=== PATIENT | female | born 1985 | race Caucasian/White ===

== ENCOUNTER 2018-07-30 22:53 | Emergency (ER) | payer OTHER ==
[~2018-07-30] VITALS: Ht 152.4 cm; Wt 56.9 kg
[~2018-07-30 22:53] MED LIST: MOT600 PO; ZOF4 PO
[2018-07-31 03:35] VITALS: BP 107/52
== END 2018-07-31 03:35 | disposition home or self-care (01) ==
LOC: ED 22:53
DX: L02.212 Cutaneous abscess of back [any part, except buttock and flank] (principal)
CPT/HCPCS: J1885; J2001

== ENCOUNTER 2018-08-02 20:41 | Emergency (ER) | payer OTHER ==
[~2018-08-02] VITALS: Ht 152.4 cm; Wt 55.8 kg
[2018-08-02 20:53] VITALS: Ht 152.4 cm; Wt 55.8 kg
[2018-08-02 21:29] VITALS: BP 116/69
== END 2018-08-02 21:29 | disposition home or self-care (01) ==
LOC: ED 20:41
DX: Z48.01 Encounter for change or removal of surgical wound dressing (principal); R11.0 Nausea; R42 Dizziness and giddiness; F17.210 Nicotine dependence, cigarettes, uncomplicated
CPT/HCPCS: 99406

== ENCOUNTER 2018-12-15 14:46 | Emergency (ER) | payer OTHER ==
[~2018-12-15] VITALS: Ht 152.4 cm; Wt 55.3 kg
[2018-12-15 14:48] VITALS: Ht 152.4 cm; Wt 55.3 kg
[2018-12-15 17:14] VITALS: BP 118/92
== END 2018-12-15 17:14 | disposition home or self-care (01) ==
LOC: ED 14:46
DX: L72.3 Sebaceous cyst (principal); F17.210 Nicotine dependence, cigarettes, uncomplicated; R50.9 Fever, unspecified; Z98.51 Tubal ligation status; Z98.890 Other specified postprocedural states; Z85.41 Personal history of malignant neoplasm of cervix uteri
CPT/HCPCS: 99406; J2001

== ENCOUNTER 2019-02-03 22:23 | Emergency (ER) | payer OTHER ==
[~2019-02-03] VITALS: Ht 152.4 cm; Wt 56.7 kg
[2019-02-03 22:55] VITALS: Ht 152.4 cm; Wt 56.7 kg
[2019-02-04 00:17] VITALS: BP 98/67
== END 2019-02-04 00:17 | disposition home or self-care (01) ==
LOC: ED 22:23
DX: S86.912A Strain of unspecified muscle(s) and tendon(s) at lower leg level, left leg, initial encounter (principal); Z98.51 Tubal ligation status; Z98.890 Other specified postprocedural states; Z85.41 Personal history of malignant neoplasm of cervix uteri; X50.1XXA Overexertion from prolonged static or awkward postures, initial encounter; Y93.K1 Activity, walking an animal; Y92.89 Other specified places as the place of occurrence of the external cause; Y99.8 Other external cause status
CPT/HCPCS: J1885

== ENCOUNTER 2019-08-19 12:36 | Emergency (ER) | payer OTHER ==
[~2019-08-19] VITALS: Ht 152.4 cm; Wt 55.3 kg
[2019-08-19 13:00] VITALS: BP 131/67; Ht 152.4 cm; Wt 55.3 kg
== END 2019-08-19 14:21 | disposition home or self-care (01) ==
LOC: ED 12:36
DX: J11.1 Influenza due to unidentified influenza virus with other respiratory manifestations (principal); Z98.51 Tubal ligation status; Z85.41 Personal history of malignant neoplasm of cervix uteri; Z98.890 Other specified postprocedural states
CPT/HCPCS: J1100

== ENCOUNTER 2020-05-04 07:12 | Emergency (ER) | payer OTHER ==
[~2020-05-04] VITALS: Ht 152.4 cm; Wt 53.1 kg
[2020-05-04 07:34] VITALS: Ht 152.4 cm; Wt 53.1 kg
[2020-05-04 08:36] VITALS: BP 114/78
[2020-05-04 08:43] LABS: BASOPHIL % 0.8 % (0-2); PLATELET COUNT 246 x10^3mcL (130-400); RED CELL DISTRIBUTION WIDTH 13.7 % (11.5-14.5)
[2020-05-04 08:49] LABS: FREE T4 1.09 ng/dL (0.76-1.46); FREE THYROXINE INDEX 2.8 ug/dL (1.4-4.5); T4(THYROXINE) 7.6 ug/dL (4.7-13.3)
[2020-05-04 08:57] LABS: CARBON DIOXIDE 24.6 mmol/L (21-32); CHLORIDE SERUM 105 mmol/L (98-107); CREATININE SERUM 0.9 mg/dL (0.6-1.0); GFR1 > 60 mL/min; GLUCOSE SERUM 92 mg/dL (74-106); POTASSIUM SERUM 3.7 mmol/L (3.5-5.1); SODIUM SERUM 139 mmol/L (136-145)
[2020-05-04 09:01] LABS: ALKALINE PHOSPHATASE 56 U/L (46-116); ALT/SGPT 20 U/L (14-59); AST/SGOT 12 U/L (15-37); BILIRUBIN TOTAL 1.11 mg/dL (0.20-1.00); TOTAL PROTEIN, SERUM 7.1 g/dL (6.4-8.2)
[2020-05-04 09:33] LABS: T3 TOTAL 1.17 ng/mL
== END 2020-05-04 09:48 | disposition home or self-care (01) ==
LOC: ED 07:12
PROVIDERS: Specialist
DX: N93.8 Other specified abnormal uterine and vaginal bleeding (principal); F43.0 Acute stress reaction; F17.210 Nicotine dependence, cigarettes, uncomplicated; Z98.890 Other specified postprocedural states
CPT/HCPCS: 84439; 87491; 87591; 99406